=== PATIENT | female | born 1995 | race Caucasian/White ===

== ENCOUNTER 2021-11-29 19:49 | Observation (INO) | payer OTHER ==
[2021-11-29 20:08] VITALS: BMI 27.1
[2021-11-29] MEDS ORDERED: ACETAMINOPHEN 325 MG TABLET (FP) PO ONE (21:13)
[2021-11-29 21:22] LABS: ARTERIAL BLOOD GAS BASE EXCESS -7.8 mmol/L (-2-2); ARTERIAL BLOOD GAS PO2 157.3 mmHg (80-100); ARTERIAL BLOOD GAS pH 7.355 (7.350-7.450)
[2021-11-29 21:28] LABS: BASO % 0.4 % (0-2.0); EOS % 0.9 % (0-4.5); HEMATOCRIT 34.5 % (32.4-45.2); HEMOGLOBIN 11.8 GM/dL (10.7-15.3); LYMPH % 22.1 % (8-40); MCH 29.6 pg (25.7-33.7); MCHC 34.3 g/dl (32.0-36.0); MEAN CELL VOLUME 86.1 fl (80-96); MEAN PLT VOLUME 8.7 fl (7.5-11.1); MONO % 3.3 % (3.8-10.2); NEUT % 73.3 % (42.8-82.8); PLATELET COUNT 265 10^3/uL (134-434); RBC 4.01 M/mm3 (3.60-5.2); RDW 12.8 % (11.6-15.6); WHITE BLOOD COUNT 6.4 K/mm3 (4.0-10.0)
[2021-11-29 21:34] LABS: INR 1.06 (0.83-1.09); PROTHROMBIN TIME (PATIENT) 12.2 SEC (9.7-13.0)
[2021-11-29] MEDS ORDERED: ACETAMINOPHEN 325 MG TABLET (FP) ONE (21:35)
[2021-11-29 21:36] LABS: CHLORIDE 109 mmol/L (98-107); SODIUM 141 mmol/L (136-145)
[2021-11-29 21:38] LABS: CALCIUM 8.9 mg/dL (8.5-10.1)
[2021-11-29 21:39] LABS: ALBUMIN 4.1 g/dl (3.4-5.0); ANION GAP 13 MMOL/L (8-16); BLOOD UREA NITROGEN 13.5 mg/dL (7-18); CO2 19 mmol/L (21-32); GLUCOSE,RANDOM 101 mg/dL (74-106)
[2021-11-29 21:42] LABS: CREATININE 0.5 mg/dL (0.55-1.3); SGOT/AST 17 U/L (15-37); SGPT/ALT 26 U/L (13-61)
[2021-11-29 21:43] LABS: BILIRUBIN,TOTAL 0.2 mg/dL (0.2-1)
[2021-11-29 21:44] LABS: TOT PROT 7.8 g/dl (6.4-8.2)
[2021-11-29 21:45] LABS: ALK PHOS 60 U/L (45-117)
[2021-11-30 02:18] LABS: ARTERIAL BLD GAS O2 SATURATION 99.8 % (95-98); ARTERIAL BLOOD GAS BASE EXCESS -2.2 mmol/L (-2-2); ARTERIAL BLOOD GAS PO2 401.9 mmHg (80-100); ARTERIAL BLOOD GAS pH 7.412 (7.350-7.450)
[2021-11-30 08:53] LABS: BASO % 0.4 % (0-2.0); EOS % 1.1 % (0-4.5); HEMATOCRIT 33.7 % (32.4-45.2); MCH 28.4 pg (25.7-33.7); MCHC 32.6 g/dl (32.0-36.0); MEAN CELL VOLUME 87.1 fl (80-96); MEAN PLT VOLUME 9.1 fl (7.5-11.1); MONO % 6.3 % (3.8-10.2); NEUT % 64.2 % (42.8-82.8); PLATELET COUNT 230 10^3/uL (134-434); RBC 3.88 M/mm3 (3.60-5.2); RDW 13.3 % (11.6-15.6); WHITE BLOOD COUNT 5.8 K/mm3 (4.0-10.0)
[2021-11-30 09:22] LABS: CALCIUM 8.6 mg/dL (8.5-10.1)
[2021-11-30 09:23] LABS: ALBUMIN 3.8 g/dl (3.4-5.0); MAGNESIUM 2.1 mg/dL (1.8-2.4)
[2021-11-30 09:25] LABS: PHOSPHOROUS 2.8 mg/dL (2.5-4.9)
[2021-11-30 09:26] LABS: CREATININE 0.6 mg/dL (0.55-1.3); TOT PROT 7.3 g/dl (6.4-8.2)
[2021-11-30 09:29] LABS: BILIRUBIN,TOTAL 0.9 mg/dL (0.2-1); BLOOD UREA NITROGEN 11.6 mg/dL (7-18)
[2021-11-30] MEDS ORDERED: ENOXAPARIN NA (PORCINE) 40 MG/0.4 ML DISP.SYRIN SQ SCH (10:00)
[2021-11-30 14:38] VITALS: BP 107/59; PULSE 72; TEMP 98.4
== END 2021-11-30 14:56 | disposition home or self-care (01) ==
LOC: JER 19:49 → JERBED 22:55 → J8W 11-30 03:26
PROVIDERS: ADMIT Internal Medicine; ATTEND Internal Medicine
PROC: 3E023GC Introduction of Other Therapeutic Substance into Muscle, Percutaneous Approach (ICD-10-PCS; principal; 2021-11-29)
DX: T58.91XA Toxic effect of carbon monoxide from unspecified source, accidental (unintentional), initial encounter (principal); Y92.89 Other specified places as the place of occurrence of the external cause; F17.290 Nicotine dependence, other tobacco product, uncomplicated; Z29.9 Encounter for prophylactic measures, unspecified
CPT/HCPCS: 36415; 36600; 80053; 82375; 82803; 83735; 84100; 84484; 84703; 85025; 85610; 85730; 87086; 93005; 93010; 96372; 99285-25; C9803; G0378; U0003; U0005